=== PATIENT | female | born 1975 | race Caucasian/White ===

== ENCOUNTER → 2023-12-18 14:04 | Outpatient (REF) | payer OTHER, SELFPAY | LOC: HWRAD 14:04 | PROVIDERS: ATTENDING PHYSICIAN Obstetrics & Gynecology; FAMILY PHYSICIAN Physician Assistant Medical | DX: N93.9 Abnormal uterine and vaginal bleeding, unspecified (principal) | CPT/HCPCS: 76830; 76856 ==

== ENCOUNTER → 2024-02-20 07:12 | Outpatient (REF) | payer OTHER, SELFPAY | LOC: HWRCS 07:12 | PROVIDERS: ATTENDING PHYSICIAN Internal Medicine Cardiovascular Disease; FAMILY PHYSICIAN Physician Assistant Medical | DX: R06.09 Other forms of dyspnea (principal) | CPT/HCPCS: 93306 ==

== ENCOUNTER → 2024-02-24 07:31 | Outpatient (REF) | payer OTHER, SELFPAY | LOC: RCS 07:31 | PROVIDERS: ATTENDING PHYSICIAN Internal Medicine Cardiovascular Disease; FAMILY PHYSICIAN Physician Assistant Medical | DX: R06.09 Other forms of dyspnea (principal) | CPT/HCPCS: 93017 ==

== ENCOUNTER → 2024-07-07 10:15 | Outpatient (REF) | payer OTHER, SELFPAY | LOC: HWRAD 10:15 | PROVIDERS: ATTENDING PHYSICIAN Obstetrics & Gynecology; FAMILY PHYSICIAN Physician Assistant Medical | DX: N93.9 Abnormal uterine and vaginal bleeding, unspecified (principal); N84.0 Polyp of corpus uteri | CPT/HCPCS: 76830; 76856 ==

== ENCOUNTER 2024-10-01 06:29 | Day surgery (SDC) | payer OTHER, SELFPAY | END 2024-10-01 10:44 | disposition home or self-care (01) | LOC: GI 06:29 | PROVIDERS: ATTENDING PHYSICIAN Internal Medicine | DX: Z12.11 Encounter for screening for malignant neoplasm of colon (principal) | CPT/HCPCS: G0121 ==